=== PATIENT | female | born 1990 | race Caucasian/White ===

== ENCOUNTER 2016-11-17 18:42 | Emergency (ER) | payer OTHER ==
[~2016-11-17] VITALS: Ht 162.6 cm; Wt 108.5 kg
[~2016-11-17 18:42] MED LIST: ALBUAER INH; CLR10 PO; MULT1CHW37 PO
[2016-11-17 18:51] VITALS: TEMP 36.8; Ht 162.6 cm; Wt 108.5 kg
[2016-11-17] MEDS ORDERED: HYDROCODONE/HOMATROPINE SYRUP 5MG/1.5MG 5ML UDP PO STA (19:40)
[2016-11-17] MEDS ORDERED: ALBUT/IPRATROP 3MG/0.5MG NEB 3 ML VIAL INH STA (19:40)
[2016-11-17] MEDS ORDERED: DEXAMETHASONE SOD INJ 10 MG/ML VIAL IM ONE (19:45)
[2016-11-17] MEDS ORDERED: PRENTAB26 PO (20:01)
[2016-11-17] MEDS ORDERED: DICY10CA55 PO (20:04)
[2016-11-17] MEDS ORDERED: DOCU-94 PO (20:04)
[2016-11-17] MEDS ORDERED: PRLSR20 PO (20:04)
[2016-11-17] MEDS ORDERED: PRED50TA PO (20:35)
--- NOTE | 2016-11-17 20:37 | EMERGENCY ROOM VISIT NOTE ---
ED Visit Note First contact with patient: 19:10 CHIEF COMPLAINT: Cough 10 days HISTORY OF PRESENT ILLNESS: Patient is a 14 weeks 26-year-old white female who presents to the emergency department for evaluation of a cough and feeling short of breath. Her symptoms started about a week ago. She developed some sinus congestion initially, which she states settled in her chest. She was seen at the [facility] clinic 6 days ago, but supportive care was advised. Her symptoms worsened and 2 days ago she reported a cough that would not stop. She went back to her PCPs office yesterday evening and was given a prescription for amoxicillin. She was also using Delsym at bedtime. She has not viewed on inhaler which she has been using 4 times daily. She continues to feel very congested and is having a difficult time breathing due to the cough. She is coughing so hard that she has vomited, and has been incontinent of urine. She is having difficulty sleeping and states that she can 't lay flat. Her cough was initially productive of yellow mucus and now she is not having any secretions. She denies any chest pain. She has not had any fevers. She denies any leg or calf pain or swelling. She is not a smoker. She did receive an influenza vaccine this year. REVIEW OF SYSTEMS: Review of systems as per HPI. All other systems reviewed were negative. At least 6 systems reviewed. PMH: Electronic medical records are reviewed and summarized as above/below. See Problem List. Patient is 14 weeks . SOCIAL HISTORY: Patient lives at home with her and son. Nonsmoker. Employed as an RN in [employer]. PHYSICAL EXAM: Vital Signs: Reviewed Nurse's notes. Vital signs are stable. She is afebrile. She is not tachycardic. MENTAL STATUS: Alert and cooperative. Nontoxic appearing. HEAD: Atraumatic, without temporal or scalp tenderness. EYES: PERRL, EOMI, no discharge or injection. EARS: Tympanic membranes intact, not inflamed, have normal contour. External canals clear. NOSE: Nares patent, turbinates moist with clear rhinorrhea. MOUTH: Mucous membranes moist, no lesions, tongue and gums appear normal. THROAT: No pharyngeal injection, exudates, or tonsillar hypertrophy. Airway is patent. NECK: Supple, nontender, no lymphadenopathy. HEART: Regular rate and rhythm without murmurs, ectopy, gallops, or rubs. LUNGS: Clear to auscultation and breath sounds equal, no wheezes, rales, or rhonchi. SKIN: Normal. NEUROLOGICAL: Sensory and motor functions grossly intact. Normal gait. EMERGENCY DEPARTMENT COURSE: The patient was seen and evaluated as above. Treatment options were discussed with her. She has a fairly persistent cough that keeps her ability to speak although she does not have true conversational dyspnea. She has a clear lung exam and is oxygenating well on room air. She was given a DuoNeb, Hycodan 10 mL's orally and Decadron 10 mg IM. We did discuss performing a chest x-ray as one has not been done since she has been ill , however I discussed with her that it would not likely change my treatment recommendations and therefore she prefers to defer. The patient was reassessed , and reported that she felt much improved. I suspect her cough is still mostly post infectious/inflammatory. She has no albuterol inhaler. She is covered with antibiotics. She only placed on a short course of oral prednisone. Possibility of PE was discussed but felt to be unlikely. I do not suspect pneumothorax. She does not have any chest pain. I do not suspect cardiomyopathy. She was encouraged to follow up with her PCP for further care and management and to return to the emergency department at any point for worsening symptoms. She expressed understanding of this. Differential diagnosis includes myocarditis, pericarditis, pulmonary embolism, pneumonia, pneumothorax, cardiomyopathy, congestive heart failure, anemia, COPD/ asthma exacerbation, musculoskeletal, anxiety, costochondritis, among others. Problem List Medical Problems: (1) Asthma Status: Chronic (2) Bronchitis Status: Chronic (3) Cholecystitis Status: Resolved (4) Diarrhea Status: Resolved (5) Epigastric pain Status: Resolved (6) Nausea/vomiting in Status: Resolved (7) Term Status: Resolved (8) term Status: Resolved Current/Historical Medications Scheduled Dicyclomine Hcl (Bentyl), 10 MG PO prn Docusate Sodium (Colace), 1 CAP PO DAILY Multivit/Min/Iron/Fol Ac/Pren ( Vitamin), 1 TAB PO DAILY Prednisone (Prednisone), 50 MG PO DAILY Scheduled PRN Albuterol (Proventil Hfa), 2 PUFFS INH Q4 PRN for Shortness of Breath Loratadine (Claritin), 10 MG PO DAILY PRN for ALLERGY Omeprazole (Prilosec), 20 MG PO DAILY PRN for Dyspepsia Allergies Coded Allergies: No Known Allergies (Unverified , 07/14/16) Vital Signs Date Time Temp Pulse Resp B/P Pulse Ox O2 Delivery O2 Flow Rate FiO2 11/17/16 20:56 68 18 134/62 97 11/17/16 18:51 36.8 79 18 114/72 95 Room Air Medications Administered Medications (Trade) Dose Ordered Sig/Deloris Route Start Time Stop Time Status Last Admin Dose Admin Hydrocodone Bit/ Homatropine Methylb (Hycodan Syrup) 10 ml NOW STAT PO 11/17/16 19:40 11/17/16 19:42 DC 11/17/16 19:46 10 ML Dexamethasone Sodium Phosphate (Decadron Inj) 10 mg NOW ONCE IM 11/17/16 19:45 11/17/16 19:46 DC 11/17/16 19:46 10 MG Albuterol/ Ipratropium (Duoneb) 3 ml NOW STAT INH 11/17/16 19:40 11/17/16 19:42 DC 11/17/16 19:46 3 ML Hydrocodone Bit/ Homatropine Methylb (Hycodan Elix Homepack 5/1.5MG/ 5ML) 1 homepack UD ONCE PO 11/17/16 20:45 11/17/16 20:46 DC 11/17/16 20:55 1 HOMEPACK Departure Information Impression Primary Impression: Acute bronchitis Prescriptions Prednisone (Prednisone) 50 Mg Tab 50 MG PO DAILY for 4 Days, #4 TAB Prov: Genny Mantilla PA 11/17/16 Referrals Tonny Martinez M.D. (PCP) Patient Instructions My [facility] Additional Instructions DO NOT drive, drink alcohol, operate machinery, or perform dangerous activities today. You were given medications in the ER that can affect your ability to safely function or operate a vehicle. Finish Amoxicillin. Albuterol Inhaler: Take 2 puffs four times daily for seven days, then as needed. Acetaminophen(Tylenol) may be used for fever or pain. Use 1000mg every eight hours as needed. Avoid using more than 3000mg in a 24 hour period. This is available over the counter. Hycodan cough syrup: use 1-2 teaspoon every six hours only as needed for severe cough. It is best for use at night since it will cause sedation. This is a narcotic medication. Avoid alcohol, operating machinery or dangerous equipment, working on ladders or roofs, DRIVING, important decision making, or situations where being under the influence may be dangerous. It is recommended to use an [id number] stool softener such as Colace, 100mg twice daily while taking this medication to avoid constipation. Read all the package inserts or medication information paperwork provided. If you have any questions or concerns call your primary provider, pharmacist or the ER for assistance. Rest and drink plenty of fluids. Avoid strenuous activity until your symptoms resolve and your breathing returns to normal. Continue current medications. Return to the ER for chest pain, difficulty breathing, persistent fevers, vomiting, worsening of your condition, or as needed Follow up with your PCP next week for recheck. Follow up with [facility] as scheduled. Problem Qualifiers Primary Impression: Acute bronchitis Bronchitis organism: unspecified organism Qualified Codes: J20.9 - Acute bronchitis, unspecified
[2016-11-17] MEDS ORDERED: HYCODAN 60ML BOTTLE HOMEPACK PO ONE (20:45)
[2016-11-17 20:56] VITALS: BP 134/62; PULSE 68; O2SAT 97
== END 2016-11-17 20:56 | disposition home or self-care (01) ==
LOC: C.EDB 18:42 → C.EDD 20:56
DX: J20.9 Acute bronchitis, unspecified (principal); J45.909 Unspecified asthma, uncomplicated

== ENCOUNTER 2017-04-30 16:22 | Outpatient (CLI) | payer OTHER ==
[~2017-04-30 16:22] MED LIST changes: +DICY10CA55 PO; +DOCU-94 PO; -MULT1CHW37 PO; +PRENTAB26 PO; +PRLSR20 PO
[2017-04-30] MEDS ORDERED: ACETAMINOPHEN 325 MG TAB PO PRN (17:00)
[2017-04-30 17:15] LABS: BASO % 0.1 %; BASO ABS # 0.01 K/uL (0-0.2); COMPLETE YES; EOS % 0.9 %; HEMATOCRIT 38.9 % (37-47); IG% 0.3 %; LYMPH % 12.7 %; LYMPH ABS # 1.47 K/uL (1.2-3.4); MEAN CELL VOLUME 85.1 fL (80-100); MEAN CORPUSCULAR HEMOGLOBIN 29.8 pg (25-34); MEAN PLATELET VOLUME 11.7 fL (7.4-10.4); MONO % 9.2 %; NEUT % 76.8 %; PLATELET COUNT 191 K/uL (130-400); RED BLOOD COUNT 4.57 M/uL (4.2-5.4); WHITE BLOOD COUNT 11.61 K/uL (4.8-10.8)
[2017-04-30 18:26] LABS: INR 0.9 (0.9-1.1); PROTHROMBIN TIME (PATIENT) 9.7 SECONDS (9.0-12.0)
== END 2017-04-30 18:53 | disposition home or self-care (01) ==
LOC: C.OPB 16:22 → C.LD 16:23 → C.OPB 18:53
PROVIDERS: ATTEND Obstetrics & Gynecology
DX: O26.893 Other specified pregnancy related conditions, third trimester (principal); Z3A.37 37 weeks gestation of pregnancy

== ENCOUNTER 2017-05-10 07:26 | Inpatient (IN) | payer OTHER ==
[~2017-05-10] VITALS: Ht 162.6 cm; Wt 114.1 kg
[2017-05-10] MEDS ORDERED: SERT25TA PO (07:50)
[2017-05-10 07:53] VITALS: Ht 162.6 cm; Wt 114.1 kg
[2017-05-10] MEDS ORDERED: LACTATED RINGER'S 1000ML 1,000 ML IV PRN (08:03)
[2017-05-10] MEDS ORDERED: LACTATED RINGER'S 1000ML 500 ML IV PRN ×2 (08:03→16:33)
[2017-05-10] MEDS ORDERED: LACTATED RINGER'S 1000ML 1,000 ML IV SCH (08:03)
[2017-05-10] MEDS ORDERED: OXYTOCIN 30 UNITS/500ML NSS IV PRN ×2 (08:15→18:00)
[2017-05-10 09:09] LABS: MEAN CELL VOLUME 85.1 fL (80-100); MEAN CORPUSCULAR HEMOGLOBIN 28.4 pg (25-34); MEAN CORPUSCULAR HGB CONC 33.4 g/dl (32-36); MEAN PLATELET VOLUME 12.1 fL (7.4-10.4); PLATELET COUNT 208 K/uL (130-400); RED BLOOD COUNT 4.82 M/uL (4.2-5.4); WHITE BLOOD COUNT 11.79 K/uL (4.8-10.8)
[2017-05-10] MEDS ORDERED: BUPIVACAINE 0.25% 30 ML VIAL ONE (15:13)
[2017-05-10] MEDS ORDERED: EpHEDrine SULFATE INJ 50 MG/ML AMP ONE (15:13)
[2017-05-10] MEDS ORDERED: FENTANYL 2MCG/ML ROPIV 1.25MG/ML 100ML BAG EPI ONE (15:14)
[2017-05-10] MEDS ORDERED: FENTANYL CITRATE INJ 50 MCG/1 ML 2 ML VIAL ONE (15:15)
[2017-05-10] MEDS ORDERED: NALOXONE HCL INJ 1 MG in SODIUM CHLORIDE 0.9% 1000ML 1,000 ML IV PRN (16:33)
[2017-05-10] MEDS ORDERED: DiphenhydrAMINE HCL 50 MG/ML VIAL IV PRN (16:45)
[2017-05-10] MEDS ORDERED: FENTANYL 2MCG/ML ROPIV 1.25MG/ML 100ML BAG EPI PRN (16:45)
[2017-05-10] MEDS ORDERED: NALOXONE HCL INJ 0.4 MG/1 ML VIAL/CARP IV PRN (16:45)
[2017-05-10] MEDS ORDERED: ONDANSETRON INJ 2 MG/ML 2 ML VIAL IV PRN (16:45)
[2017-05-10] MEDS ORDERED: NALBUPHINE HCL INJ 10 MG/ML AMP IV PRN (16:45)
[2017-05-10] MEDS ORDERED: EpHEDrine SULFATE INJ 50 MG/ML AMP IV PRN (16:45)
[2017-05-10] MEDS ORDERED: HYDROCORTISONE ACETATE 25 MG SUPP PR PRN (18:00)
[2017-05-10] MEDS ORDERED: PANTOprazole SOD 40 MG TAB PO PRN (18:00)
[2017-05-10] MEDS ORDERED: BENZOCAINE 20% AER SPR 82.5 GM CAN EXT PRN (18:00)
[2017-05-10] MEDS ORDERED: LANOLIN OINT EXT PRN ×2 (18:00)
[2017-05-10] MEDS ORDERED: SUPERCREAM 0.870 % 15GM JAR EXT PRN (18:00)
[2017-05-10] MEDS ORDERED: ACETAMINOPHEN/CODEINE 300/30MG TAB PO PRN ×2 (18:00)
[2017-05-10] MEDS ORDERED: DIPHTHERIA/TETANUS/PERTUSSIS 0.5 ML SYR/VIAL IM. ONE (18:00)
[2017-05-10] MEDS ORDERED: OXYCODONE/ACETAMINOPHEN 5-325 TAB PO PRN (18:00)
[2017-05-10] MEDS ORDERED: ALBUTEROL HFA 8 GM INHALER INH PRN (18:00)
--- NOTE | 2017-05-10 18:08 | Progress Note ---
Progress Note Date of Service May 10, 2017. Progress Note DELIVERY NOTE: DATE OF DELIVERY: 05/10/17 TIME OF DELIVERY: 1748 TIME OF PLACENTA: 1750 DELIVERY SUMMARY: Patient is a 26 y/o at 39.1 weeks who was admitted to L& D on the morning of 05/10/17 for a scheduled induction of labor secondary to class III obesity. She was started on oxytocin per protocol. She received an epidural for anesthesia. AROM was performed at 1712 with clear amniotic fluid noted. She reached complete dilation with the urge to push at 1736. She pushed to delivery at 1748. She delivered a viable female in the ADELE position to an intact perineum. The baby was placed on the patients abdomen. Cord was clamped x 2 and cut. APGARs were 8 at 1 minute and 9 at 5 minutes. Cord blood donation was obtained. Cord blood obtained and an intact placenta with a 3 VC delivered at 1750. Oxytocin infusion was began. The lower uterine segment and vagina was cleared of any blood clots and debris. Exploration of the perineum noted no lacerations. EBL was 300 ml. All sponge and instrument counts were found to be correct x 2. Patient tolerated the delivery well and was in recovery with stable vital signs.
[2017-05-10] MEDS ORDERED: DOCUSATE SODIUM 100 MG CAP PO SCH (20:00)
--- NOTE | 2017-05-10 20:09 | Anesthesia Procedure Note ---
Anesthesia Epidural Removal Nt Date & Time May 10, 2017 at 20:09 Vital Signs Pain Intensity: 0.0 Notes Mental Status: alert / awake / arousable, participated in evaluation Nausea / Vomiting: adequately controlled Pain: adequately controlled Airway Patency, RR, SpO2: stable & adequate BP & HR: stable & adequate Hydration State: stable & adequate Neuraxial Anesthesia: was administered Anesthetic Complications: no major complications apparent, pt satisfied with anesthetic care Epidural: removed without complications, with tip intact
[2017-05-10 20:10] VITALS: BP 131/77; PULSE 83; TEMP 36.9; O2SAT 98
[2017-05-10 21:10] VITALS: BP 131/77; PULSE 83; TEMP 36.9; O2SAT 98
[2017-05-10] MEDS: ACETAMINOPHEN 325 MG TAB PO PRN (23:24)
[2017-05-11 00:10] VITALS: BP 123/66; PULSE 71; TEMP 36.9; O2SAT 99
[2017-05-11 03:20] VITALS: BP 133/84; PULSE 65; TEMP 36.8; O2SAT 100
[2017-05-11 07:21] VITALS: BP 121/77; PULSE 70; TEMP 36.5; O2SAT 97
[2017-05-11] MEDS: IBUPROFEN 600 MG TAB PO PRN ×2 (07:41→16:29)
[2017-05-11] MEDS ORDERED: DOCUSATE SODIUM 100 MG CAP PO SCH (08:00)
[2017-05-11] MEDS ORDERED: PRENATAL VITAMIN TAB PO SCH (08:00)
[2017-05-11] MEDS ORDERED: FERROUS SULFATE 325 MG TAB PO SCH (08:00)
[2017-05-11] MEDS ORDERED: SERTRALINE HCL 50 MG TAB PO SCH (08:00)
[2017-05-11 09:08] LABS: HEMATOCRIT 37.8 % (37-47)
[2017-05-11 11:11] VITALS: BP 129/87; PULSE 74; TEMP 36.3; O2SAT 98
[2017-05-11] MEDS ORDERED: MTR600X PO (11:40)
--- NOTE | 2017-05-11 11:42 | Discharge Instructions ---
Discharge Instructions Date of Service May 11, 2017. Admission Reason for Admission: Induction Discharge Discharge Diagnosis / Problem: term delivered Discharge Goals Goal(s): Routine recovery after delivery Activity Recommendations Activity Limitations: as noted below Lifting Limitations: no more than 10 pounds Exercise/Sports Limitations: gradually increase as tolerated, until after follow-up appointment May Resume Sexual Activity: after follow-up appointment Shower/Bathe: no limitations Driving or Machine Use: resume 3 days after discharge . Instructions / Follow-Up Instructions / Follow-Up ACTIVITY RECOMMENDATIONS: * Gradual return to full activity over the next 2-3 weeks. * No lifting - nothing heavier than baby over the next 2-3 weeks. * Do not engage in vigorous exercise, sexual activity or sports until cleared by your physician. * Do not drive or operate any motorized equipment until cleared by your physician. * You may shower/bathe daily. BREAST CARE: If you are not breast feeding: * Wear a supportive bra 24 hours a day for one to two weeks. * Avoid stimulating your breasts and nipples as much as possible during the first few weeks after delivery. * When taking a shower, have the warm water hit your back, not breasts. * When your breasts feel full, apply ice packs. Usually three to four times a day helps ease the discomfort. * Take a mild pain medication (Tylenol/Motrin) when you are uncomfortable. If breast feeding: * Use breast milk to lubricate nipples. Lansinoh cream may be used for sore nipples. You do not need to remove cream prior to breast feeding. If using a different brand of cream, check the label for directions regarding removal of cream prior to nursing. * Wear a supportive bra. * If having problems with breasts or breast feeding, call a hearing aid consultant or your health care provider. EPISIOTOMY CARE: After delivery, if you have an episiotomy (stitches), the following steps will ease discomfort and aid healing. * For the first 24 hours after delivery, place ice packs next to your episiotomy to help reduce swelling. * After the first 24 hour-period, sitz baths, either portable or in the tub, are suggested. A shower with a shower arm sprayed over the episiotomy may be comforting. * Marva care should be done after each voiding and bowel movement. Squirt warm water from a plastic bottle over the perineum (region of the body between the anus and urinary opening) and pat dry. * Use Dermoplast to ease discomfort. Shake container. [place] directly over the episiotomy. * Place a Tucks on a clean sanitary pad next to your episiotomy. OVER THE COUNTER MEDICATION: * For discomfort or pain, you may use Acetaminophen (Tylenol), Ibuprofen (Advil ), or Naproxen (Aleve) following the package directions. * For constipation you may use Colace following the package directions. SPECIAL CARE INSTRUCTIONS: When you are discharged from the hospital, it is important for you to follow the instructions listed below: * During the first week at home, you should be able to care for yourself and your baby. In addition, the usual light household activities are encouraged. * Limit your activities to the way you feel. Do not try to clean the house or move furniture. Be sensible. * If you actively engage in sports and have done so up until the time of your delivery, you may resume these activities as soon as you feel able. This may take up to one month or even longer. Use good judgment. * Continue to take your vitamins for at least six weeks after the of your baby. * Your diet need not be limited unless you were on a special diet before your delivery. Breast-feeding mothers need around 2500 calories per day and at least 64-80 ounces of fluid per day (8 to 10 glasses). * You should eat foods from the four major food groups. Crash diets or fad diets are to be avoided. Eating lean meats, fresh fruits and vegetables, low-fat dairy products, high fiber foods and a regular exercise program, will help you get back to your pre- weight without putting your health at risk. * Constipation is sometimes a problem after delivery. Take a mild laxative as needed. If breast feeding, Milk of Magnesia is acceptable to use. You may use a suppository or Fleets enema if no episiotomy. * A daily shower or tub bath is suggested. Be sure to thoroughly and gently dry the perineum. * A bloody vaginal discharge will usually continue until around four weeks post . A small amount of bleeding may continue for as long as six weeks. Vaginal discharge changes from the bright red bleeding after delivery to pink then brownish and finally yellowish-pink before becoming white and disappearing. * Bleeding may increase with activity. Your first period may come in 4-8 weeks. If you are breast feeding, your period may be delayed even longer. * [place] (sex) can begin whenever both you and your partner feel comfortable and do not have any form of genital infection. It is recommended that you wait until after your return appointment and discuss with your physician. If you have questions, please talk to your health care practitioner. A condom should be used to prevent infection and . * Foreplay, gentle intercourse and lubrication is very important the first several times to prevent pain. A water-based lubricant such as K-Y jelly or Astroglide may be used. * Tampons may be used six weeks after delivery. * Douching should be avoided for 6 weeks after delivery. * If you have RH negative blood and your baby is RH positive, you will receive RHOGAM by injection prior to discharge. The nurse will give you a card to keep with you that has the date and place that you received RHOGAM after delivery. * During your care, you had a Rubella screen done to check for the presence of rubella antibodies in your blood. If your test was negative, you will receive a Rubella vaccine prior to discharge. This vaccine may cause a fever, soreness at the injection site and flu-like symptoms. If these symptoms persist, notify your health care practitioner. is not advised for three months after a Rubella vaccine. There is a higher chance of having a baby with defects if conceived within three months of getting the vaccine. * If you were discharged 24 hours from delivery or before 48 hours: Visiting nurses will come to your home 48 hours after discharge to assess you and your baby. The visiting nurse will meet with you while you are in the hospital to arrange a time and get directions to your home. * Verbalizes understanding of car seat law as reviewed with patient nursing. * Car Seat hand-out given and reviewed with patient by nursing. * Shaken baby information reviewed with patient by nursing. Call you doctor if: * Heavy bleeding (saturating several pads an hour) or passing clots the size of your fist. * A fever >101 degrees F (38.3 degrees C) on two occasions four hours apart and/or chills. * Unusual pain in the pelvic or vaginal areas. * "Baby Blues" lasting longer than two weeks. If you have any questions or concerns, call your health care practitioner at . FOLLOW-UP VISIT: * Please call the office at to schedule a 6 week examination. It is important you keep this appointment. * It is important for you to make arrangements for either yearly or twice yearly check-ups thereafter. Current Hospital Diet Patient's current hospital diet: Regular OB Diet Discharge Diet Recommended Diet: Regular OB Diet Fluid Restriction: None Pending Studies Studies pending at discharge: no Medical Emergencies . Who to Call and When: Medical Emergencies: If at any time you feel your situation is an emergency, please call 911 immediately. . Non-Emergent Contact Non-Emergency issues call your: Primary Care Provider . . "Provider Documentation" section prepared by Pawel Lorenzo. . VTE Core Measure Inpt VTE Proph given/why not?: Treatment not indicated
--- NOTE | 2017-05-11 11:43 | OB/GYN Progress Note ---
[facility] Progress Note Date of Service May 11, 2017. Subjective conversation w/ patient, physical exam Ambulation: ambulating normally Voiding: no voiding problems Passing Gas: Yes Diet Tolerance: Regular Diet Lochia: Small Feeding Type: Bottle Feeding Objective Vital Signs Date Time Temp Pulse Resp B/P (MAP) Pulse Ox O2 Delivery O2 Flow Rate FiO2 05/11/17 11:11 36.3 74 20 129/87 (101) 98 Room Air 05/11/17 07:45 Room Air 05/11/17 07:21 36.5 70 18 121/77 (92) 97 Room Air 05/11/17 03:20 36.8 65 20 133/84 (100) 100 Room Air 05/11/17 00:10 99 Room Air 05/11/17 00:10 36.9 71 20 123/66 (85) 99 Room Air 05/10/17 21:10 36.9 83 20 131/77 (95) 98 Room Air Physical Exam General Appearance: WELL-APPEARING, NO APPARENT DISTRESS Abdomen: non tender Fundus: Firm Extremities: non-tender, normal inspection, no pedal edema Laboratory Results Last 24 Hours Test 05/11/17 08:39 Hemoglobin 12.9 g/dL Hematocrit 37.8 % Assessment and Plan Post- Day Number: 1 Continue Routine Care: discharged
[2017-05-11] MEDS: ACETAMINOPHEN 325 MG TAB PO PRN (12:26)
[2017-05-11 15:30] VITALS: BP 116/76; PULSE 63; TEMP 36.5
[2017-05-11 18:45] VITALS: BP 116/76; PULSE 63; TEMP 36.5; O2SAT 98
[2017-05-11] MEDS ORDERED: BISACODYL 5 MG TABEC PO SCH (20:00)
[2017-05-12] MEDS ORDERED: BISACODYL 10 MG SUPP PR PRN (07:00)
== END 2017-05-11 18:45 | disposition home or self-care (01) | DRG 775 ==
LOC: C.LD 07:26 → C.OBG 20:51
PROVIDERS: ADMIT Obstetrics & Gynecology; ATTEND Obstetrics & Gynecology
PROC: 10E0XZZ Delivery of Products of Conception, External Approach (ICD-10-PCS; principal; 2017-05-10)
PROC: 3E033VJ Introduction of Other Hormone into Peripheral Vein, Percutaneous Approach (ICD-10-PCS; principal; 2017-05-10)
PROC: 10903ZC Drainage of Amniotic Fluid, Therapeutic from Products of Conception, Percutaneous Approach (ICD-10-PCS; principal; 2017-05-10)
DX: O99.214 Obesity complicating childbirth (principal); Z68.41 Body mass index [BMI] 40.0-44.9, adult; E66.9 Obesity, unspecified; Z3A.39 39 weeks gestation of pregnancy; Z37.0 Single live birth